=== PATIENT | male | born 1955 | race Caucasian/White ===

== ENCOUNTER → 2018-06-18 | Outpatient (CLI) | payer MEDICARE ==
[~2018-06-18] MED LIST: Advil200 M1 PO; Flomax0.4 MG PO; GABA600 PO; GLUCOSAMIN-CHO1 EACH PO; KETO10 PO; Multivitamin1 EAC1 PO; Norco 5-325 Ta1 EACH PO; Percocet 5-3251 EACH PO; Zofran8 MG PO
== END | disposition home or self-care (01) ==
LOC: LAB 08:18 → LAB SHORT 08:18
DX: C44.329 Squamous cell carcinoma of skin of other parts of face (principal)
CPT/HCPCS: 88305

== ENCOUNTER 2018-08-26 11:46 | Day surgery (SDC) | payer MEDICARE ==
[~2018-08-26] VITALS: Ht 193 cm; Wt 76.4 kg
== END 2018-08-26 13:38 | disposition home or self-care (01) ==
LOC: ORSCSDS 11:46
PROVIDERS: Internal Medicine Gastroenterology
PROC: 0DBH8ZX Excision of Cecum, Via Natural or Artificial Opening Endoscopic, Diagnostic (ICD-10-PCS; principal; 2018-08-26 13:00)
DX: R19.4 Change in bowel habit (principal); K63.5 Polyp of colon; K57.30 Diverticulosis of large intestine without perforation or abscess without bleeding; Z83.71 Family history of colonic polyps; R10.32 Left lower quadrant pain
CPT/HCPCS: 86803; 88305; J7120

== ENCOUNTER 2018-09-30 11:25 | Emergency (ER) | payer MEDICARE ==
[~2018-09-30] VITALS: Ht 193 cm; Wt 77.1 kg
[2018-09-30 12:44] LABS: BASOPHILS ABSOLUTE AUTO 0.03 K/mm3 (0.00-0.23); BASOPHILS PERCENT AUTO 0 % (0-2); EOSINOPHILS ABSOLUTE AUTO 0.01 K/mm3 (0.00-0.68); EOSINOPHILS PERCENT AUTO 0 % (0-6); Hematocrit 46.2 % (37.0-53.0); Hemoglobin 14.7 g/dL (13.5-17.5); IMMATURE GRAN ABSOLUTE AUTO 0.05 K/mm3 (0.00-0.10); IMMATURE GRAN PERCENT AUTO 1 % (0-1); LYMPHOCYTES ABSOLUTE AUTO 0.83 K/mm3 (0.84-5.20); LYMPHOCYTES PERCENT AUTO 9 % (21-46); MONOCYTES ABSOLUTE AUTO 0.49 K/mm3 (0.16-1.47); MONOCYTES PERCENT AUTO 5 % (4-13); Mean Corpuscular HGB Conc 31.8 g/dL (31.5-36.5); Mean Corpuscular Volume 98 fL (80-100); Mean Platelet Volume 10.3 fL (9.1-12.4); NEUTROPHILS ABSOLUTE AUTO 8.25 K/mm3 (1.96-9.15); NEUTROPHILS PERCENT AUTO 85 % (41-73); Platelet Count 170 K/mm3 (150-400); RDW Standard Deviation 46.4 fL (35.1-46.3); Red Blood Cell Count 4.74 M/mm3 (4.30-5.90); White Blood Cell Count 9.66 K/mm3 (4.00-11.30)
[2018-09-30 12:51] LABS: Source, Urine Clean Catch
[2018-09-30 12:55] LABS: Bilirubin, Urine Neg (Neg); Blood, Urine 1+ (Neg); Glucose Qualitative, Urine Neg (Neg); Ketones, Urine Neg (Neg); Leukocyte Esterase, Urine 1+ (Neg); Nitrite, Urine Neg (Neg); Protein, Urine Neg (Neg); Specific Gravity, Urine 1.015 (1.003-1.022); Urobilinogen, Urine NORM (Normal)
[2018-09-30 13:00] LABS: Appearance, Urine Clear (Clear); Color, Urine Yellow (P-Yellow)
[2018-09-30 13:03] LABS: Bacteria Rare /hpf; Squamous Epithelial Cells Rare /hpf (Few); White Blood Cells, Urine 0-2 /hpf (0-5)
[2018-09-30 13:04] LABS: Mucus Light (0-Heavy)
[2018-09-30 13:11] LABS: Alanine Aminotransfer (ALT/SGP 20 U/L (12-78); Albumin, Blood 3.9 g/dL (3.4-5.0); Albumin/Globulin Ratio 1.2 (0.8-1.8); Alk Phos 52 U/L (50-136); Anion Gap 3 mmol/L (6-16); Aspartate Aminotrans (AST/SGOT 16 U/L (12-37); Bilirubin, Total 0.6 mg/dL (0.1-1.0); Blood Urea Nitrogen 15 mg/dL (8-24); Bun/Creatinine Ratio 16.6 (12.0-20.0); CO2, Blood 31 mmol/L (21-32); Calcium, Blood 8.9 mg/dL (8.5-10.1); Chloride, Blood 106 mmol/L (98-108); Globulin, Blood 3.3 g/dL (2.2-4.0); Glomerular Filtration Rate >60 (60-); Glucose, Blood 118 mg/dL (70-99); Potassium, Blood 4.3 mmol/L (3.5-5.5); Sodium, Blood 140 mmol/L (136-145); Total Protein, Blood 7.2 g/dL (6.4-8.2)
[2018-09-30] MEDS ORDERED: Percocet 5-3251 EACH PO (14:54)
[2018-09-30] MEDS ORDERED: ONDA4ODT MM (14:54)
[2018-09-30] MEDS ORDERED: Flomax0.4 MG PO (15:09)
[2018-09-30] MEDS ORDERED: KETO10 PO (15:25)
== END 2018-09-30 15:27 | disposition home or self-care (01) ==
LOC: ER 11:25
PROVIDERS: Physician Assistant
DX: N13.2 Hydronephrosis with renal and ureteral calculous obstruction (principal); Z88.0 Allergy status to penicillin; Z88.1 Allergy status to other antibiotic agents; Z88.5 Allergy status to narcotic agent; Z87.891 Personal history of nicotine dependence
CPT/HCPCS: 36415; 74176; 80053; 81001; 85025; 87086; 96374; 96375; 99284-25; J1885; J2405

== ENCOUNTER → 2018-10-10 | Outpatient (CLI) | payer MEDICARE ==
[~2018-10-10] MED LIST changes: +ONDA4ODT MM
== END | disposition home or self-care (01) ==
LOC: PLD 07:44 → LAB SHORT 07:44
DX: D22.5 Melanocytic nevi of trunk (principal)
CPT/HCPCS: 88305

== ENCOUNTER → 2020-02-03 | Outpatient (CLI) | payer MEDICARE | END | disposition home or self-care (01) | LOC: LAB EV 18:20 → LAB SHORT 18:20 | DX: L72.3 Sebaceous cyst (principal) | CPT/HCPCS: 87070; 87075; 87205 ==

== ENCOUNTER → 2020-04-19 | Outpatient (CLI) | payer MEDICARE ==
[2020-05-03 13:08] LABS: BRUSHITE 0.28 ratio (0.00-3.00); CALCIUM OXALATE 1.86 ratio (0.00-6.00); CALCIUM, URINE 2.3 mg/dL (Not Estab.); CALCIUM, URINE 39.1 mg/24 hr (100.0-300.0); CHLORIDE URINE 87 (110-250); CITRIC ACID (CITRATE) 232 mg/L (Not Estab.); CITRIC ACID(CITRATE) 394 mg/24 hr (320-1240); CREATININE, URINE 1388.9 mg/24 hr (1000.0-2000.0); CREATININE, URINE 81.7 mg/dL (Not Estab.); MAGNESIUM, URINE 2.8 mg/dL (Not Estab.); MONOSODIUM URATE 1.65 ratio (0.00-4.00); OSMOLALITY, URINE 344 (300-900); SODIUM, URINE 105 (58-337); SODIUM, URINE 62 mmol/L (Not Estab.); STRUVITE 0.01 ratio (0.00-1.00); URIC ACID 0.84 ratio (0.00-1.20); URINE VOLUME 1700 mL/24 hr (800-1800); URINE VOLUME (PRESERVATIVE) 1700 mL/24 hr (800-1800)
== END | disposition home or self-care (01) ==
LOC: LAB SHORT 13:28 → LAB 13:28
PROVIDERS: Nurse Practitioner
DX: N20.2 Calculus of kidney with calculus of ureter (principal)
CPT/HCPCS: 81003; 81050; 82131; 82140; 82340; 82436; 82507; 82570; 83735; 83935; 83945; 84105; 84133; 84300; 84392; 84560

== ENCOUNTER → 2021-06-15 | Outpatient (CLI) | payer MEDICARE | END | disposition home or self-care (01) | LOC: LAB SHORT 10:43 | DX: L08.0 Pyoderma (principal) | CPT/HCPCS: 87070; 87205 ==

== ENCOUNTER → 2021-06-27 | Outpatient (CLI) | payer MEDICARE | END | disposition home or self-care (01) | LOC: LAB SHORT 11:07 → PLD 11:07 | DX: D48.5 Neoplasm of uncertain behavior of skin (principal) | CPT/HCPCS: 88305 ==

== ENCOUNTER → 2021-08-02 | Outpatient (CLI) | payer MEDICARE | END | disposition home or self-care (01) | LOC: LAB 10:49 → LAB SHORT 10:49 | DX: L08.0 Pyoderma (principal) | CPT/HCPCS: 87070; 87205 ==

== ENCOUNTER → 2023-03-15 | Outpatient (CLI) | payer MEDICARE | LOC: PLD 12:40 → LAB SHORT 12:40 | DX: L73.8 Other specified follicular disorders (principal) | CPT/HCPCS: 88305; 88312 ==

== ENCOUNTER 2024-05-26 10:36 | Day surgery (SDC) | payer MEDICARE ==
[~2024-05-26] VITALS: Ht 193 cm; Wt 81.4 kg
[2024-05-26] MEDS ORDERED: NS 500 ML IV ONE (11:15)
[2024-05-26] MEDS ORDERED: GLUCHON PO (11:19)
[2024-05-26] MEDS ORDERED: VITAMIN D (11:19)
[2024-05-26] MEDS ORDERED: Saw Palmetto160 MG (11:20)
[2024-05-26] MEDS ORDERED: A-REDS (11:20)
[2024-05-26] MEDS ORDERED: propofoL 20 ML IV ONE (11:41)
[2024-05-26] MEDS ORDERED: CeFAZolin Sodium 2,000 MG VIAL ONE (12:14)
[2024-05-26] MEDS ORDERED: Bupivacaine 0.5% W/EPI 1:200000 SDV 30ML INJ ONE (12:38)
[2024-05-26 13:20] VITALS: BP 145/83
== END 2024-05-26 13:15 | disposition home or self-care (01) ==
LOC: ORSCSDS 10:36
PROVIDERS: Podiatrist Foot & Ankle Surgery
PROC: 0JBQ0ZZ Excision of Right Foot Subcutaneous Tissue and Fascia, Open Approach (ICD-10-PCS; principal; 2024-05-26 12:00)
DX: R22.9 Localized swelling, mass and lump, unspecified (principal); Z87.891 Personal history of nicotine dependence
CPT/HCPCS: 88305; J0690; J2704